=== PATIENT | female | born 1950 | race Caucasian/White ===

== ENCOUNTER 2025-05-15 11:05 | Outpatient (AMB) | payer MEDICARE, SELFPAY ==
[2025-05-15 11:18] VITALS: BMI 29.2
--- NOTE | 2025-05-15 11:18 | A.PHYSOV ---
Vital Signs 05/15/25 11:18 Height 5 ft 3 in Weight 165 lb BMI 29.2 Intake Visit Reasons: MRI FUV-SCANNED Intake Note: Patient is a 75 year old female here today for MRI review. Surgical Device Sales Representative Required: No Allergies adhesive Allergy (Unknown, Verified 05/15/25 11:20) Unknown HPI Comments Details: History of Present Illness The patient is a 75 year old individual presenting for evaluation and management of chronic neck and bilateral shoulder pain. The patient has a history of severe cervical spine disease, including degenerative disc disease at C3-4, C4-5, and C5-6, arthritis, and a bone spur that is tapping the spinal cord. Imaging also shows evidence of right C6 and left C5 nerve impingement. The patient reports significant improvement in neck pain and mobility following a course of physical therapy. The patient's primary complaint today is throbbing pain in the right arm, extending from the shoulder down, which is constant and wakes the patient from sleep. The patient has a history of calcific tendinitis in the right shoulder. She has a pain level today of 6/10 to the right shoulder. The left shoulder has a chronic rotator cuff tear with a high-riding humerus, resulting in limited active range of motion, though it is not painful unless used. Past interventions include a shoulder injection by another provider, which resulted in severe throbbing arm pain and tingling in the fingers for several days, causing apprehension about further injections. The patient was prescribed oxycodone previously but never took it. The patient intermittently uses ibuprofen, which is more effective than Tylenol, but is concerned about its effect on blood pressure. Relevant past medical history includes hypertension, for which the patient takes two medications. The patient is not diabetic. Pain Description - Location: Right arm, from the shoulder down. - Quality: Throbbing. - Impact: The pain is described as driving me crazy, draining, and awakens the patient from sleep. - Exacerbating factors: Right shoulder pain is worsened by activities like putting dishes away. - Associated symptoms: The patient has limited range of motion in the shoulders. Procedure: Right subacromial injection [facility]15/[facility] Surgical History Hx of tonsillectomy History of hip replacement Previous section Social History (Reviewed 05/15/25 @ 11:20 by PAPO Yusuf Alcohol intake: current Alcohol intake frequency: does not drink Patient Tobacco Use Status: Never used Tobacco Use of substances other than those prescribed or required for medical reasons: No Current occupational status: retired Review of Systems Narrative Review of Systems - Musculoskeletal: Reports bilateral shoulder pain, with throbbing on the right. - Neurological: Reports a history of tingling in fingers following a prior shoulder injection. - Cardiovascular: Reports a history of high blood pressure. - Dermatological: Reports itchy, dry skin on the back. Physical Exam Exam Exam: Physical Exam Cervical Spine: Examination of the cervical spine, there is no visible swelling or deformity. She has some improvement in range of motion to lateral rotation and flexion bilaterally since physical therapy. She is tender to bilateral upper trapezius. Special Tests: Axial Compression test: Negative Spurlings test: Negative Lhermitte's sign is Negative Upper Extremities: Examination of the left shoulder, she is tender to the lateral deltoid. She has 90 degrees of forward flexion. Otherwise full range of motion. Positive empty can test. Full range of motion of her elbow wrist and hand. Equal vertical mill operator strength bilaterally. Examination of her right shoulder, there is no visible swelling or deformity. She is tender to lateral deltoid. She has full range motion of the shoulder in all planes. 5/5 rotator cuff strength throughout. Positive Neer test. Negative empty can test. Full range of motion of her elbow wrist and hand. Neuro: Sensation: Intact to upper extremities bilateral to light touch Strength C5 (Elbow Flexion): 5/5 on the left and 5/5 on the right. C6 (Elbow Ext): 5/5 on the left and 5/5 on the right. C7 (Elbow Ext): 5/5 on the left and 5/5 on the right. C8 (Finger Flex): 5/5 on the left and 5/5 on the right. T1 (Finger Abd/Add): 5/5 on the left and 5/5 on the right. DTR: C5 (Biceps): Left 2 Right 2 C6 (Brachioradialis): Left 1 Right 1 C7 (Triceps): Left 2 Right 2 Lovell sign: Negative No pathologic clonus. No involuntary movement. Vital Signs: BMI result Body Mass Index 29.2 Office Procedures AMB Shoulder Injection AMB Shoulder Injection Procedure Details: Right Subacromial injection Procedure: The patient was educated about risks, complications and benefits including but not limited to increased serum glucose, infection, nerve damage, bleeding, tendon/ligament damage and pain. We agree with a subacromial injection is the next best step in the treatment plan. Verbal consent was obtained. Using aseptic technique, the skin was cleansed with Betadine. Ethyl chloride was used to desensitize the skin. Using a posterior approach, 40 mg of Kenalog and 3 mL 2% lidocaine were injected using a 25-gauge inch and a half needle into the subacromial space. The patient tolerated the procedure well without immediate complication. Postinjection instructions were given. Shoulder Injection - : Right All charges added?: Procedure code (CPT) selection complete Office Meds Kenalog 40 mg/mL suspension for injection Performing Provider: KEDAR Ladd [facility] Administered by: KEDAR Ladd on 05/15/25 12:14 Dose Route Admin Location Dispensed Lot Number Expiration Date [facility] Government Affairs Manager 40 mg intra-articular 1 mL [id number] [employer] Total Dispensed Waste 1 mL 0 % lidocaine (PF) 20 mg/mL (2 %) injection solution Performing Provider: KEDAR Ladd Performing Location: [facility] Administered by: KEDAR Ladd on 05/15/25 12:14 Dose Route Admin Location Dispensed Lot Number Expiration Date [facility] Government Affairs Manager 60 mg intra-articular 50 mL [id number] Total Dispensed Waste 50 mL 0 % Assessment & Plan Assessment & Plan (1) Cervical radiculopathy: Code(s): M54.12 - Radiculopathy, cervical region Category: Medical (2) Calcific tendonitis of right shoulder: Code(s): M75.31 - Calcific tendinitis of right shoulder Category: Medical (3) Rotator cuff tear arthropathy of left shoulder: Code(s): M75.102 - Unspecified rotator cuff tear or rupture of left shoulder, not specified as traumatic; M12.812 - Other specific arthropathies, not elsewhere classified, left shoulder Category: Medical Plan Pain Management - Affect: The patient finds the throbbing pain to be draining. - Analgesia: The patient has tried Tylenol, which is ineffective, and ibuprofen, which offers better relief. - Adverse Effects: The patient is concerned about taking ibuprofen due to a history of high blood pressure and had a prior negative experience with a shoulder injection that caused severe throbbing and tingling. - Activities of Daily Living: Pain interferes with sleep and activities such as putting dishes away. - Aberrant Drug Related Behaviors: None noted; the patient reports having an unused prescription for oxycodone. Plan Patient was informed and verbally consented to the use of an ambient scribe for clinic note documentation during this visit. 1. Calcific Tendinitis Of Right Shoulder The patient's throbbing right arm pain is attributed to calcific tendinitis of the right shoulder rather than a cervical etiology, as symptoms are exacerbated by shoulder movement. Options discussed included a physical therapy referral, as-needed use of anti-inflammatory medications, and a corticosteroid injection. After discussing the patient's significant apprehension due to a previous negative experience, along with the risks and benefits, the patient consented to a right subacromial corticosteroid injection, which was performed during the visit with the goal of reducing inflammation and pain. A referral for physical therapy was also provided. 2. Chronic Rotator Cuff Tear Of Left Shoulder The patient has a known chronic rotator cuff tear of the left shoulder, which is currently not significantly painful unless the arm is used. It was noted that the definitive treatment would be a reverse total shoulder arthroplasty, which the patient is not pursuing. The plan is to continue conservative management, including continued use of the arm to prevent loss of motion and consideration of glenohumeral injection in the future if symptoms worsen. 3. Cervical Spondylosis With Radiculopathy The patient has severe multilevel cervical spondylosis, but the present arm symptoms are thought to be unrelated to the neck, as neck movement does not reproduce them and neck pain has improved with physical therapy. A diagnostic cervical injection was discussed as an option but deemed unlikely to be beneficial at this time. The plan is to continue monitoring, and the physical therapy referral will include the neck. There are no signs of myelopathy on her exam. Patient will follow-up with our office as needed. Thank you for allowing me to participate in the care of your patient. Orders: Orders PT Evaluation and Treatment Today M12.812 - Other specific arthropathies, not elsewhere classified, left shoulder, M54.12 - Radiculopathy, cervical region, M75.102 - Unspecified rotator cuff tear or rupture of left shoulder, not specified as traumatic, M75.31 - Calcific tendinitis of right shoulder AMB Shoulder Injection Today M75.31 - Calcific tendinitis of right shoulder Coding Level of Care Code Tele Est Pt Level 3 (86446) Diagnoses Cervical radiculopathy M54.12 Calcific tendonitis of right shoulder M75.31 Rotator cuff tear arthropathy of left shoulder M75.102; M12.812 CPT Codes AMB Shoulder Injection - Hip/Bursa Injection - : Right ([id number])
--- OUTSIDE RECORDS SUMMARY | 2025-05-15 14:33 | XMS_ITS | Clinical Summary ---
Author Organization [facility] Address [address] [place] [address] Phone Care Team Providers Care Chief Mate Name Role Phone Silvana Mera MD Primary Care Provider [phone] Social History Tobacco Use Types Packs/Day Years Used Date Smoking Tobacco: Never Assessed Education Answer Date Recorded Are you interested in more education? Not on saul e 10/18/2022 Are you concerned about learning? Not on file 10/18/2022 No 10/18/2022 No 10/18/2022 Digital Access Answer Date Recorded No 11/09/2022 No 11/09/2022 No 11/09/2022 Reliable internet access at home? Not on file 11/09/2022 Device with a working camera? Not on file Comments Unknown Sex and Gender Information Value Date Recorded Sex Assigned at Not on file Legal Sex Female 5:36 PM EST Gender Identity Not on file Sexual Orientation Not on file Plan of Treatment Health Maintenance Due Date Last Done Comments LIPID PANEL 1951 DEPRESSION SCREENING 1963 SMOKING Hx and SMOKELESS TOBACCO SCREENING 1964 HEPATITIS C SCREENING 1969 MAMMOGRAM 1991 COLOGUARD 1996 COLONOSCOPY 1996 COLORECTAL CANCER SCREENING 1996 FIT TEST 1996 FOBT 1996 SIGMOIDOSCOPY 1996 VIRTUAL COLONOSCOPY 1996 ZOSTER VACCINES (1 of 2) 2001 OSTEOPOROSIS SCREENING INITIAL (ONE-TIME) 2016 PNEUMOCOCCAL VACCINES (50+ years) (2 of 2 - PCV20 or PCV21) 05/02/2020 05/02/2019 Adult Td,Tdap Booster 11/08/2020 11/08/2010 INFLUENZA VACCINE (#1) 2025 0, 05/02/2019, 03/29/2018, Additional history exists COVID-19 VACCINE (2 - 2024- season) 2025 08/26/2020 RSV VACCINE (1 - 1-dose 75+ series) 2026 HEPATITIS A VACCINES Aged Out No long er eligible based on patient's age to complete this topic HIB VACCINES Aged Out No longer eligi ble based on patient's age to complete this topic MENINGOCOCCAL VACCINES (ACWY) Aged Out No longer eligible based on patient's age to complete this topic MENINGOCOCCAL VACCINES (B) Aged Out N o longer eligible based on patient's age to complete this topic Medical Devices Not on file Insurance [facility] TOTAL CHOICE INDEMNITY MEDICARE PART A & B [facility] TOTAL CHOICE INDEMNITY MEDICARE PART A & B [facility] TOTAL CHOICE INDEMNITY MEDICARE PART A & B [employer] TOTAL CHOICE INDEMNITY MEDICARE PART A & B [employer] TOTAL CHOICE INDEMNITY MEDICARE PART A & B [facility] TOTAL CHOICE INDEMNITY MEDICARE PART A & B [employer] [facility] TOTAL CHOICE INDEMNITY MEDICARE PART A & B [employer] [facility] TOTAL CHOICE INDEMNITY MEDICARE PART A & B [facility] TOTAL CHOICE INDEMNITY MEDICARE PART A & B Care Teams Chief Mate Relationship Specialty Start Date End Date Silvana Mera MD [address] [place] [address] PCP - General 12/13/13 Additional Source Comments The information contained in this document represents components of the legal health record. It is not the complete legal health record.[facility]
--- OUTSIDE RECORDS SUMMARY | 2025-05-15 14:33 | XMS_ITS | Clinical Summary ---
Author Organization [facility] [address] [place] [address] [place] [phone] Phone Care Team Providers Care Driver Operator Name Role Phone Silvana Mera MD Primary Care Provider [phone] Allergies Active Allergy Reactions Criticality Noted Date Comments Adhesive 11/18/2022 Holter monitor glue Medications dilTIAZem (Tiadylt ER) 120 mg 24 hr capsule Take 1 capsule (120 mg total) by mouth 1 (one) time each day. 12/05/2022 Active TURMERIC ORAL 1 (one) time each day. Active MULTIVITAMIN ORAL 1 tablet daily Active omeprazole (PriLOSEC) [address] capsule Take 1 capsule (20 mg total) by mouth 1 (one) time each day. Do not crush or chew. 90 capsule 3 12/02/2024 Active famotidine (PEPCID) 20 mg tablet Take 1 tablet (20 mg total) by mouth 2 (two) times a day. 180 tablet 3 12/02/2024 Active lisinopril (PRINIVIL,ZESTR IL) 40 mg tablet Take 1 tablet (40 mg total) by mouth at bedtime. 90 tablet 1 01/12/2025 Active diclofenac (VOLTAREN) 75 mg EC tablet Take 1 tablet (75 mg total) by mouth 2 (two) times a day. Do not crush, chew, or split. 60 tablet 2 02/03/2025 Active Active Problems Problem Noted Date Diagnosed Date LINNEA (obstructive sleep apnea) 01/01/2023 Overview (04/20/2024): moderate Teran's esophagus without dysplasia 07/03/2021 Assessment & Plan (06/01/2024 2:35 PM EST): Orders: CBC and differential; Future Ambulatory referral to Gastroenterology; Future Gallstone 01/28/2021 Overview (04/20/2024): 8/21 2 cm stone Subclinical hypothyroidism 08/27/2020 Assessment & Plan (06/01/2024 2:35 PM EST): Orders: Thyroid stimulating hormone; Future Actinic keratoses 06/25/2020 Hypertension 02/22/2020 Assessment & Plan (06/01/2024 2:35 PM EST): Orders: Basic metabolic panel; Future Hyperlipidemia 02/13/2020 Overview (04/20/2024): ASCVD score 10% (Jan 2020) Assessment & Plan (06/01/2024 2:35 PM EST): GERD (gastroesophageal reflux disease) Assessment & Plan (06/01/2024 2:35 PM EST): Orders: CBC and differential; Future Spinal stenosis, lumbar 11/20/2011 Osteoarthritis of hip 02/28/2011 Overview (04/20/2024): IMO update 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 12/06/2009 Resolved Problems Problem Noted Date Diagnosed Date Resolved Date Acquired hammertoe of left foot 05/25/2024 11/18/2024 Tailor's bunionette, left 05/25/2024 Encounters Date Type Department Care Team Description 05/08/2025 9:30 AM EST Office Visit Orthopedic Surgery - [place] [address] [phone] Freddie Oro, DPM Hammer toe of left foot (Primary Dx); Contracture of joint of left foot; Skin disease 03/17/2025 10:30 AM EDT Office Visit Orthopedics - [address] [phone] Carloz Guerra PA Radicular pain in left arm (Primary Dx); Chronic left shoulder pain; Neck pain 03/16/2025 6:36 PM EDT - 03/16/2025 11:59 PM EDT Hospital Encounter Radiology Department - [address] [phone] Cervicalgia Discharge Disposition: Home or Self Care 02/16/2025 Telephone Orthopedic Surgery [place] [address] [phone] Jd Pozo DPM 02/15/2025 10:00 AM EDT Office Visit Orthopedic Surgery [facility] [address] [phone] Jd Pozo DPM Pain in left foot (Primary Dx) from Last 3 Months Immunizations Immunization Administration Dates Next Due Influenza trivalent, 0.5mL ( Fluad) 65yo and older 02/18/2023,05/12/2022,03/18/2021,03/08,05/02/2019,03/29/2018,07/16/2017 ,04/04/2016,03/08/2015,03/27/2014 Influenza trivalent, 0.5mL ( Fluzone High-dose) 65yo and older 04/22/2024 Influenza trivalent, 0.5mL, preservative free (Fluarix; FluLaval; Fluzone) ages 6mo and older (Afluria) 3 years and older 2018 Pfizer (ages 12 & older) Biv alent, COVID-19 07/11/2022 Pneumococcal conjugate 13 va lent (Prevnar 13, PCV13) 2mo and older 05/02/2019 Pneumococcal polysaccharide 23 valent (Pneumovax 23) 2yo and older 03/18/2021 Td Tetanus diptheria (Tdvax) 7yo and older 06/11/2022 Tdap Tetanus diptheria acell ular pertussis (Boostrix; Adacel) 7yo and older 11/08/2010 Zoster recombinant (Shingrix ) 19yo and older 05/25/2023,12/06/2022 Surgical History Surgery Date Site/Laterality Comments TONSILLECTOMY 1960 SECTION 1988 HIP ARTHROPLASTY 03/2012 and 03/2017 Bilateral BREAST BIOPSY 11/2014 Left neg COLONOSCOPY 04/30/2006 Negative screening examination COLONOSCOPY 12/19/2016 Negative screening examination BREAST BIOPSY 02/01/2021 Right neg ESOPHAGOGASTRODUODENOSCOPY 06/12/2021 long segment barretts SECTION, LOW TRANSVERSE Medical History Medical History Date Comments Special screening for malign ant neoplasms, colon 04/30/2006 negative colonoscopy 11.16.0 6. No colon cancer screening necessary until 2015. Subclinical hypothyroidism 08/27/2020 Gallstone 01/28/202102/02 2 cm stone LINNEA (obstructive sleep apnea) 01/01/2023 : moderate Teran's esophagus without dysplasia 07/03/2021 GERD (gastroesophageal reflux disease) 0 Hyperlipidemia 02/13/2020 ASCVD score 10% (Jan 2020) Hypertension 02/22/2020 Osteoarthritis of hip 02/28/2011 IMO 6 update Spinal stenosis, lumbar 11/20/2011 PONV (postoperative nausea a nd vomiting) Family History Medical History Relation Name Comments Melanoma Father diabetes, CAD, macular degeneration, and glaucoma Coronary artery disease Maternal Grandfather Macular degeneration Maternal Grandmother Colon cancer Mother melanoma (65), macular degeneration, arthritis COPD Paternal Grandfather Coronary artery disease Paternal Grandmother Hypertension Sister x 3 myathesnia grav is Breast cancer Neg Hx Relation Name Status Comments Father Maternal Grandfather Maternal Grandmother Mother Paternal Grandfather Paternal Grandmother Sister x 3 Alive Social History Tobacco Use Types Packs/Day Years Used Date Smoking Tobacco: Never Smokeless Tobacco: Never Tobacco Cessation:Counseling Given: Not Answered Alcohol Use Standard Drinks/Week Comments Yes 0 (1 standard drink = 0.6 oz pur e alcohol) RARE Interpersonal Safety Answer Date Record ed Physical Abuse Unrecognized value 11/18/2024 Verbal Abuse Unrecognized value 11/18/2024 Comments No Sex and Gender Information Value Date Recorded Sex Assigned at Not on file Legal Sex Female 12:08 PM EST Gender Identity Not on file Sexual Orientation Not on file Obstetrics History Para Term AB IAB SAB Ectopic Multiple Livin g Live Births 1 1 1 1 Date Outcome GA Total Labor Labor/2nd/3rd Weight Sex Type Anes PTL Glenis A1 A5 Name Clin Term Last Filed Vital Signs Vital Sign Reading Time Taken Comments Blood Pressure 133/68 12/02/2024 11:14 AM EDT Pulse 88 12/02/2024 10:55 AM EDT Temperature 36.6 C (97.9 F) 12/02/2024 10:55 AM EDT Respiratory Rate 16 03/17/2025 10:32 AM EDT Oxygen Saturation 97% 12/02/2024 10:55 AM EDT Inhaled Oxygen Concentration - - Weight 76.2 kg (168 lb) 03/17/2025 10:32 AM EDT Height 160 cm (5' 3 ) 03/17/2025 10:32 AM EDT Body Mass Index 29.76 03/17/2025 10:32 AM EDT Plan of Treatment Upcoming Encounters Date Type Department Care Team (Late st Contact Info) Description 06/05/2025 10:00 AM EST Office Visit Adult Medicine [address] [phone] Margaret Savage PA [address] [place] [address] 11/01/2025 10:00 AM EDT Office Visit Orthopedic Surgery [facility] [address] [phone] Freddie Oro, DPM [address] [phone] Health Maintenance Due Date Last Done Comments Colorectal Cancer Screening: Colonoscopy 1950 Social Influencers of Health Screening 05/24/2022 Depression Screening 06/15/2024 06/01/2024 COVID-19 Vaccine ( season) 2025 07/11/2022, 09/17/2020, 08/26/2020 Influenza Vaccine (#1) 2025 , 02/18/2023, 05/12/2022, Additional history exists Hypertension/CHF/CAD Annual BMP Blood Test 06/01/2025 06/01/2024, 12/10/2023, 12/10/2023 Medicare Annual Wellness Visit 06/01/2025 06/01/2024 Falls Risk Assessment 11/18/2025 11/18/2024 , 06/01/2024, 12/19/2016 RSV Immunization Adult Patients (1 - 1-dose 75+ series) 2026 Breast Cancer Screening 02/09/2027 02/10/20, 02/09/2024, 02/09/2024, Additional history exists Cholesterol Screening (Lipid Panel) 12/09/2028 12/10/2023, 12/10/2023 DTaP,Tdap,and Td Vaccines (3 - Td or Tdap) 06/11/2032 06/11/2022, 11/08/2010 Osteoporosis Screening (Bone Density Screening) 05/04/2033 05/04/2023, 01/22/2021 Hepatitis C Screening Completed 01/25/2003 Pneumococcal Vaccine: 50+ Years Completed 03/18/2021, 05/02/2019 Zoster Vaccines Completed 05/25/2023, 12/06/2022 HIB Vaccines Aged Out No longer eligi ble based on patient's age to complete this topic HPV Vaccines Aged Out No longer eligi ble based on patient's age to complete this topic Hepatitis A Vaccines Aged Out No long er eligible based on patient's age to complete this topic Hepatitis B Vaccines Aged Out No long er eligible based on patient's age to complete this topic IPV Vaccines Aged Out No longer eligi ble based on patient's age to complete this topic MMR Vaccines Aged Out No longer eligi ble based on patient's age to complete this topic Meningococcal ACWY Vaccine Aged Out N o longer eligible based on patient's age to complete this topic Meningococcal B Vaccine Aged Out No l onger eligible based on patient's age to complete this topic RSV Immunization Patients Under 20 months Aged Out No longer eligible based on patient's age to complete this topic Varicella Vaccines Aged Out No longer eligible based on patient's age to complete this topic Procedures Procedure Name Priority Date/Time Associated Diagnosis Comments MR CERVICAL SPINE WO CONTRAST Routine 03/16/2025 7:23 PM EDT Cervicalgia MG MAMMO DIGITAL SCREENING W STEVEN BILAT Routine 02/09/2025 10:41 AM EDT Encounter for screening mammogram for breast cancer BASIC METABOLIC PANEL Routine 06/01/2024 3:01 PM EST Primary hypertension LIPID PANEL Routine 12/10/2023 DXA BONE DENSITY STUDY 1+ SITS AXIAL SKEL Routine 05/04/2023 11:02 AM EST Encounter for screening for osteoporosis FALLS RISK ASSESSMENT Routine 12/19/2016 HEPATITIS C SCREENING Routine 01/25/2003 from Last 3 Months or Most Recently Relevant to Health Maintenance Results * MR Cervical Spine wo Contrast (03/16/2025 7:23 PM EDT) Anatomical Region Laterality Modality C-spine, Spine Magnetic Resonan ce 03/17/2025 1:02 PM EDT Narrative 03/19/2025 11:17 PM EDT MRI of the cervical spine without intravenous contrast. History neck and bilateral shoulder pain. MRI of the cervical spine without intravenous contrast. History bilateral neck and shoulder pain. Examination was performed on 1.5 Ciara magnet without administration of intravenous contrast. Details are limited due to motion artifact. Cerebellar tonsils are normally positioned. Vertebral bodies are maintained in height. At C2-3 level there is mild hypertrophy of the left facet joint. No focal disc herniation spinal cord or nerve root compression. At C3-4 level disc is decreased in height and T2 signal. There is diffuse bulging of the disc, more prominent to the left, hypertrophy of the left facet joint. There is narrowing of the L4 neural foramina, left more than right. There is possible compression of the left C4 nerve root. At C4-5 level disc is decreased in height and T2 signal. There is bulging of the disc and marginal osteophytes more prominent to the left. There is narrowing of the anterior subarachnoid space and effacement of the left anterior aspect of the spinal cord. There are hypertrophic degenerative changes in the left uncovertebral and facet joints with narrowing of the left C5 neural foramen. There is possible compression of the left C5 nerve root. At C5-6 level there is mild retrolisthesis of C5 over C6. Disc is markedly decreased in height and T2 signal. There is disc osteophyte complex obliterating the anterior subarachnoid space and compressing the anterior surface of the spinal cord, more prominent on the right. There is some flattening of the spinal cord at this level. There are hypertrophic changes in the uncovertebral joints more prominent on the right. There is narrowing of the lateral recesses and C6 neural foramina bilaterally, more prominent on the right. There is possible compression of the right C6 nerve root. At C6-7 level disc is decreased in height and T2 signal. There is no focal disc herniation or spinal stenosis. There is hypertrophy of the left facet and uncovertebral joints with narrowing of the left C7 neural foramen. At C7-T1 level there is minimal anterior displacement of C7 over T1. There is bulging of the disc and marginal osteophytes as well as hypertrophic changes in the uncovertebral joints. There is narrowing of the T8 neural foramina, left more than right. Spinal cord was visualized without evidence of focal signal abnormalities. There is possible. Neural cyst in the left C4 neural foramen. It was normal evaluated in the axial plane. CONCLUSIONS: Limited by motion artifact examination. Multilevel bony and discs degenerative changes with compression of the anterior surface of the spinal cord at C5-6 level. Effacement of the left anterior aspect of the spinal cord at C4-5 level. Narrowing of the neural foramina at multiple levels with possible compression of the left C4 nerve root, left C5 nerve root, right C6 nerve root, left C7 nerve root. Possible perineural cyst in the left T4 neural foramen. Please see details in the report. -------- FINAL REPORT -------- Dictated By: Maria De Jesus Lugo Dictated Date: 03/17/2025 13:02 ET Assigned Physician: Maria De Jesus Lugo Reviewed and Electronically Signed By: Maria De Jesus Lugo Signed Date: 03/19/2025 23:17 ET Workstation ID: [id number] Transcribed By: Self Edit Transcribed Date: 03/17/2025 14:04 ET Procedure Note Maria De Jesus Lugo MD - 03/19/2025 MRI of the cervical spine without intravenous contrast. History neck and bilateral shoulder pain. MRI of the cervical spinewithout intravenous contrast. History bilateral neck and shoulder pain. Examination was performed on 1.5 Ciara magnet without administration ofintravenous contrast. Details are limited due to motion artifact. Cerebellar tonsils are normally positioned. Vertebral bodies aremaintained in height. At C2-3 level there is mild hypertrophy of the left facet joint. No focaldisc herniation spinal cord or nerve root compression. At C3-4 level disc is decreased in height and T2 signal. There is diffusebulging of the disc, more prominent to the left, hypertrophy of the leftfacet joint. There is narrowing of the L4 neural foramina, left more thanright. There is possible compression of the left C4 nerve root. At C4-5 level disc is decreased in height and T2 signal. There is bulgingof the disc and marginal osteophytes more prominent to the left. There isnarrowing of the anterior subarachnoid space and effacement of the leftanterior aspect of the spinal cord. There are hypertrophic degenerativechanges in the left uncovertebral and facet joints with narrowing of theleft C5 neural foramen. There is possible compression of the left C5 nerveroot. At C5-6 level there is mild retrolisthesis of C5 over C6. Disc is markedlydecreased in height and T2 signal. There is disc osteophyte complexobliterating the anterior subarachnoid space and compressing the anteriorsurface of the spinal cord, more prominent on the right. There is someflattening of the spinal cord at this level. There are hypertrophicchanges in the uncovertebral joints more prominent on the right. There isnarrowing of the lateral recesses and C6 neural foramina bilaterally, moreprominent on the right. There is possible compression of the right [id number] root. At C6-7 level disc is decreased in height and T2 signal. There is no focaldisc herniation or spinal stenosis. There is hypertrophy of the left facetand uncovertebral joints with narrowing of the left C7 neural foramen. At C7-T1 level there is minimal anterior displacement of C7 over T1. Thereis bulging of the disc and marginal osteophytes as well as hypertrophicchanges in the uncovertebral joints. There is narrowing of the T8 neuralforamina, left more than right. Spinal cord was visualized without evidence of focal signal abnormalities.There is possible. Neural cyst in the left C4 neural foramen. It wasnormal evaluated in the axial plane. CONCLUSIONS: Limited by motion artifact examination. Multilevel bony and discsdegenerative changes with compression of the anterior surface of thespinal cord at C5-6 level. Effacement of the left anterior aspect of thespinal cord at C4-5 level. Narrowing of the neural foramina at multiplelevels with possible compression of the left C4 nerve root, left C5 nerveroot, right C6 nerve root, left C7 nerve root. Possible perineural cyst inthe left T4 neural foramen. Please see details in the report. -------- FINAL REPORT -------- Dictated By: Maria De Jesus Lugo Dictated Date: 03/17/2025 13:02 ET Assigned Physician: Maria De Jesus Lugo Reviewed and Electronically Signed By: Maria De Jesus Lugo Signed Date: 03/19/2025 23:17 ET Workstation ID: [id number] Transcribed By: Self Edit Transcribed Date: 03/17/2025 14:04 ET Sravan THACKER IMG MRI PROCEDURES Final Resul t * MG Mammo Digital Screening w Steven bilat (02/09/2025 10:41 AM EDT) Anatomical Region Laterality Modality Breast Bilateral Mammography 02/09/2025 6:32 PM EDT Impressions 02/09/2025 6:34 PM EDT No mammographic evidence for malignancy. BI-RADS CATEGORY: 1 - NEGATIVE RECOMMENDATION: Screening bilateral mammogram is recommended in 1 year. Mammo Location: [facility], [address] [place] [address], [phone], . -------- FINAL REPORT -------- Dictated By: Maria De Jesus Lugo Dictated Date: 02/09/2025 18:32 ET Assigned Physician: Maria De Jesus Lugo Reviewed and Electronically Signed By: Maria De Jesus Lugo Signed Date: 02/09/2025 18:34 ET Workstation ID: [id number] Transcribed By: Self Edit Transcribed Date: 02/09/2025 18:32 ET Narrative 02/09/2025 6:34 PM EDT Bilateral screening mammogram. CLINICAL: 74 years old, Female, routine annual exam. COMPARISON: Prior mammograms, latest from 02/04/2024. TECHNIQUE: Bilateral MLO and CC views were obtained digitally with 2 D C views and 3-D mammogram (digital breast tomosynthesis). Computer-aided detection was utilized in evaluation of this exam (CAD). FINDINGS: There is no evidence of suspicious mass or architectural distortion. No worrisome calcifications are evident. There has been no significant change from prior exam(s). BREAST DENSITY: B - There are scattered areas of fibroglandular density. Procedure Note Maria De Jesus Lugo MD - 02/09/2025 Bilateral screening mammogram. CLINICAL: 74 years old, Female, routine annual exam. COMPARISON: Prior mammograms, latest from 02/04/2024. TECHNIQUE: Bilateral MLO and CC views were obtained digitally with 2 D Cviews and 3-D mammogram (digital breast tomosynthesis). Computer-aideddetection was utilized in evaluation of this exam (CAD). FINDINGS: There is no evidence of suspicious mass or architectural distortion. Noworrisome calcifications are evident. There has been no significantchange from prior exam(s). BREAST DENSITY: B - There are scattered areas of fibroglandular density. IMPRESSION: No mammographic evidence for malignancy. BI-RADS CATEGORY: 1 - NEGATIVE RECOMMENDATION: Screening bilateral mammogram is recommended in 1 year. Mammo Location: [facility], [address] [place] [address], [id number], . -------- FINAL REPORT -------- Dictated By: Maria De Jesus Lugo Dictated Date: 02/09/2025 18:32 ET Assigned Physician: Maria De Jesus Lugo Reviewed and Electronically Signed By: Maria De Jesus Lugo Signed Date: 02/09/2025 18:34 ET Workstation ID: [id number] Transcribed By: Self Edit Transcribed Date: 02/09/2025 18:32 ET us Silvana Mera MD IMG BI PROCEDURES Final Result * Basic metabolic panel (06/01/2024 3:01 PM EST) Sodium 140 133 - 145 mmol/L LAB CHEMISTRY METHOD 06/01/2024 6:05 PM [facility] Potassium 4.6 3.5 - 5.5 mmol/L LAB CHEMISTRY METHOD 06/01/2024 6:05 PM [facility] Chloride 108 96 - 110 mmol/L LAB CHEMISTRY METHOD 06/01/2024 6:05 PM [facility] CO2 25 21 - 32 mmol/L LAB CHEMISTRY METHOD 06/01/2024 6:05 PM [facility] Anion Gap 7 3 - 11 LAB CHEMISTRY METHOD 06/01/2024 6:05 PM [facility] Glucose 88 70 - 100 mg/dL LAB CHEMISTRY METHOD 06/01/2024 6:05 PM [facility] BUN 18 5 - 25 mg/dL LAB CHEMISTRY METHOD 06/01/2024 6:05 PM [facility] Creatinine 0.91 0.50 - 1.10 mg/dL LAB CHEMISTRY METHOD 06/01/2024 6:05 PM [facility] eGFR 67 >=60 mL/min/1. 73m2 LAB CHEMISTRY METHOD 06/01/2024 6:05 PM [facility] Comment:Calculation based on the Chronic Kidney Disease Epidemiology Collaboration (CKD-EPI) equation refit without adjustment for race. BUN/Creatinine Ratio 19.8 LAB CHEMISTRY METHOD 06/01/2024 6:05 PM [facility] Calcium 10.1 8.5 - 10.5 mg/dL LAB CHEMISTRY METHOD 06/01/2024 6:05 PM [facility] Blood Venous blood specimen / Unknown Venipuncture / Unknown 06/01/2024 3:01 PM EST 06/01/2024 3:01 PM EST us Silvana Mera MD LAB BLOOD ORDERABLES Final Resul t [place] ([facility]) [facility] [address] [place] [address], [place] [phone] * (ABNORMAL) Lipid panel (12/10/2023) LDL/HDL Ratio 5(A) 0 - 4 Triglycerides 168(A) 0 - 150 mg/dL Cholesterol 259(A) 0 - 200 mg/dL HDL 54 >=40 mg/dL LDL Cholesterol 172(A) 0 - 100 mg/dL Blood Venous blood specimen / Unknown Historical Provider LAB BLOOD ORDERABLES Emily l Result * DXA BONE DENSITY STUDY 1+ SITS AXIAL SKEL (05/04/2023 11:02 AM EST) Anatomical Region Laterality Modality Bone Densitometr y 02/18/2023 10:3 1 AM EDT Narrative 05/04/2023 5:23 PM EST STUDY: DUAL ENERGY X-RAY ABSORPTIOMETRY / DXA REASON FOR EXAM: Female, 73 years old. menopausal/postmenopausal disorder TECHNIQUE: Bone Mineral Density (BMD) measurements of the lumbar spine and left forearm were obtained using [employer] W (S/N [id number]). COMPARISON: January 22, 2021 FINDINGS: L1-L4 BMD: 1.337 g/cm2 L1-L4 T score: 2.6. This corresponds to Normal bone density. This represents a -2.9* % decrease in bone density compared with prior exam from January 22, 2021. Left forearm 1/3 radius BMD: 0.636 g/cm2 Left forearm 1/3 radius T score: -1.0. This corresponds to Normal bone density. This represents a -3.9* % decrease in bone density compared with prior exam from January 22, 2021. * - Indicates a statistically significant change. IMPRESSION: IMPRESSION: Normal bone density Reference Information: The T-score is the number of standard deviations above or below the standard which is normal for young adults at their peak bone mineral density. The World Health Organization (WHO) interprets the T-scores as follows: At or above -1 SD Normal bone density Between -1 and -2.5 SD Osteopenia At or below -2.5 SD Osteoporosis Procedure Note Norm Saxena MD - 07/21/2023 STUDY: DUAL ENERGY X-RAY ABSORPTIOMETRY / DXA REASON FOR EXAM: Female, 73 years old. menopausal/postmenopausaldisorder TECHNIQUE: Bone Mineral Density (BMD) measurements of the lumbar spineand left forearm were obtained using [employer] W (S/N [id number]). COMPARISON: January 22, 2021 FINDINGS: L1-L4 BMD: 1.337 g/cm2 L1-L4 T score: 2.6. This corresponds to Normal bone density. This represents a -2.9* % decrease in bone density compared with priorexam from January 22, 2021. Left forearm 1/3 radius BMD: 0.636 g/cm2 Left forearm 1/3 radius T score: -1.0. This corresponds to Normal bonedensity. This represents a -3.9* % decrease in bone density compared with priorexam from January 22, 2021. * - Indicates a statistically significant change. IMPRESSION: IMPRESSION: Normal bone density Reference Information: The T-score is the number of standard deviations above or below thestandard which is normal for young adults at their peak bone mineral density. The World HealthOrganization (WHO) interprets the T-scores as follows: At or above -1 SD Normal bone density Between -1 and -2.5 SD Osteopenia At or below -2.5 SD Osteoporosis [place] [facility] [place]ED[place] Final Result * Falls Risk Assessment (12/19/2016) Falls Risk Assessment abstracted us Historical Provider HEALTH MAINTENANCE Final Result * Hepatitis C Screening (01/25/2003) Hepatitis C Screening abstracted us Historical Provider HEALTH MAINTENANCE Final Result from Last 3 Months or Most Recently Relevant to Health Maintenance Insurance MEDICARE [facility] Advance Directives * Full Code - Default (Latest Code Status on File) Date Activated Date Inactivated Comments 11/18/2024 5:59 AM 11/18/2024 11:58 AM This is order is used when code status has not been discussed with the patient, or code status is otherwise unknown/unconfirmed To update the patient's code status, place a code status order. Do not modify or discontinue any currently active code status orders. Care Teams Driver Operator Relationship Specialty Start Date End Date Silvana Mera MD [address] [place] [address] PCP - General Internal Medicine 10/17/15
--- OUTSIDE RECORDS SUMMARY | 2025-05-15 14:33 | XMS_ITS | Encounter Summary ---
Author Organization [facility] Address [address] [place] [address] Phone Care Team Providers Care Sewer Name Role Phone Silvana Mera MD Primary Care Provider [phone] Encounter Details Date Type Department Care Team (Late st Contact Info) Description 02/11/[address] [facility] [place] Imaging - Rene Ayon [address] [place] [address] Will Suarez MD [address] [place] [id number] Instability of joint Social History Tobacco Use Types Packs/Day Years Used Date Smoking Tobacco: Never Assessed Comments Unknown Sex and Gender Information Value Date Recorded Sex Assigned at Not on file Legal Sex Female 5:36 PM EST Gender Identity Not on file Sexual Orientation Not on file documented as of this encounter Plan of Treatment Not on file documented as of this encounter Results * XR PELVIS 1 VIEW (02/24/2017 2:15 PM EDT) Anatomical Region Laterality Modality Pelvis Radiographic Joann ging 02/24/2017 3:41 PM EDT Impressions 02/24/2017 5:08 PM EDT Right total hip arthroplasty with lucency surrounding the acetabular component, which is rotated and oriented vertically with resulting uncovering of the femoral head component. 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 This report has been forwarded to an automated communication system which will electronically notify appropriate providers of potentially important findings. Narrative 02/24/2017 5:08 PM EDT XR PELVIS 1 VIEW ONLY 02/24/2017, XR JOINT SURVEY (BILATERAL) 02/24/2017. COMPARISON: Right hip radiographs 05/06/2013. FINDINGS: A single lateral radiograph of the pelvis and lumbar spine demonstrates multilevel disc and facet degenerative changes, most advanced in the lower lumbar spine. Low resolution, wide hophn-qg-[id number] radiographs of the pelvis and lower extremities demonstrates a right total knee arthroplasty. There is new lucency surrounding the acetabular component, which is rotated compared to the prior exam and now oriented vertically with resulting uncovering of the femoral head component. The alignment of the femoral head component is unchanged since 2012. There are severe degenerative changes of the left hip. There is right superior pelvic tilt. Procedure Note Kenyatta Wiseman MD - 02/24/2017 XR PELVIS 1 VIEW ONLY 02/24/2017, XR JOINT SURVEY (BILATERAL) 02/24/2017. COMPARISON: Right hip radiographs 05/06/2013. FINDINGS: A single lateral radiograph of the pelvis and lumbar spine demonstrates multilevel disc and facet degenerative changes, most advanced in thelower lumbar spine. Low resolution, wide yzrzu-le-yrug radiographs of the pelvis and lower extremities demonstrates a right total knee arthroplasty. There is newlucency surrounding the acetabular component, which is rotated compared to theprior exam and now oriented vertically with resulting uncovering of the femoralhead component. The alignment of the femoral head component is unchanged [id number]. There are severe degenerative changes of the left hip. There is rightsuperior pelvic tilt. IMPRESSION: Right total hip arthroplasty with lucency surrounding the acetabularcomponent, which is rotated and oriented vertically with resulting uncovering ofthe femoral head component. 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 This report has been forwarded to an automated communication system whichwill electronically notify appropriate providers of potentially importantfindings. us Will Suarez MD IMG XR PELVIS Final Re sult * XR Joint Survey (Bilateral) (02/24/2017 2:11 PM EDT) Anatomical Region Laterality Modality Radiographic Joann ging 02/24/2017 3:41 PM EDT Impressions 02/24/2017 5:08 PM EDT Right total hip arthroplasty with lucency surrounding the acetabular component, which is rotated and oriented vertically with resulting uncovering of the femoral head component. 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 This report has been forwarded to an automated communication system which will electronically notify appropriate providers of potentially important findings. Narrative 02/24/2017 5:08 PM EDT XR PELVIS 1 VIEW ONLY 02/24/2017, XR JOINT SURVEY (BILATERAL) 02/24/2017. COMPARISON: Right hip radiographs 05/06/2013. FINDINGS: A single lateral radiograph of the pelvis and lumbar spine demonstrates multilevel disc and facet degenerative changes, most advanced in the lower lumbar spine. Low resolution, wide [id number] radiographs of the pelvis and lower extremities demonstrates a right total knee arthroplasty. There is new lucency surrounding the acetabular component, which is rotated compared to the prior exam and now oriented vertically with resulting uncovering of the femoral head component. The alignment of the femoral head component is unchanged since 2012. There are severe degenerative changes of the left hip. There is right superior pelvic tilt. Procedure Note Kenyatta Wiseman MD - 02/24/2017 XR PELVIS 1 VIEW ONLY 02/24/2017, XR JOINT SURVEY (BILATERAL) 02/24/2017. COMPARISON: Right hip radiographs 05/06/2013. FINDINGS: A single lateral radiograph of the pelvis and lumbar spine demonstrates multilevel disc and facet degenerative changes, most advanced in thelower lumbar spine. Low resolution, wide tenqk-xq-xrfo radiographs of the pelvis and lower extremities demonstrates a right total knee arthroplasty. There is newlucency surrounding the acetabular component, which is rotated compared to theprior exam and now oriented vertically with resulting uncovering of the femoralhead component. The alignment of the femoral head component is unchanged [id number]. There are severe degenerative changes of the left hip. There is rightsuperior pelvic tilt. IMPRESSION: Right total hip arthroplasty with lucency surrounding the acetabularcomponent, which is rotated and oriented vertically with resulting uncovering ofthe femoral head component. 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 This report has been forwarded to an automated communication system whichwill electronically notify appropriate providers of potentially importantfindings. us Will Suarez MD IMG XR UPPER EXTREMITY F inal Result documented in this encounter Visit Diagnoses Diagnosis Instability of joint Other joint derangement, not elsewhere classified, unspecified site Instability of joint Other joint derangement, not elsewhere classified, unspecified site Instability of joint Other joint derangement, not elsewhere classified, unspecified site documented in this encounter Care Teams Sewer Relationship Specialty Start Date End Date Silvana Mera MD [address] [place] [address] PCP - General 12/13/13 documented as of this encounter Additional Source Comments The information contained in this document represents components of the legal health record. It is not the complete legal health record.[facility]
== END 2025-05-15 11:56 | disposition home or self-care (01) ==
LOC: HO.HPHYS 11:05
PROVIDERS: Visit Provider Physician Assistant
DX: M54.12 Radiculopathy, cervical region (principal); M75.31 Calcific tendinitis of right shoulder; M75.102 Unspecified rotator cuff tear or rupture of left shoulder, not specified as traumatic; M12.812 Other specific arthropathies, not elsewhere classified, left shoulder
CPT/HCPCS: 20610; 99213

== ENCOUNTER → 2025-05-15 11:05 | Outpatient (BNVA) | payer MEDICARE, SELFPAY | PROVIDERS: Visit Provider Physician Assistant | DX: M75.31 Calcific tendinitis of right shoulder (principal); M75.102 Unspecified rotator cuff tear or rupture of left shoulder, not specified as traumatic; M12.812 Other specific arthropathies, not elsewhere classified, left shoulder; M54.12 Radiculopathy, cervical region | CPT/HCPCS: 20610; 99212; J2003; J3301 ==